=== PATIENT | female | born 1930 | race Caucasian/White ===

== ENCOUNTER 2016-11-04 15:25 | Inpatient (IN) | payer MEDICARE, BC ==
[~2016-11-04] VITALS: Ht 157.5 cm; Wt 52.6 kg
--- NOTE | 2016-11-04 16:00 | NUR ---
RECEIVED TO ROOM 2238 DIRECT ADMIT FROM DOCTOR'S OFFICE. IV STARTED TO L FA WITH 20 GUAGE X 1 ATTEMPT. FAMILY AT BEDSIDE.
[2016-11-04] MEDS ORDERED: COZAAR100 MG PO (16:03)
[2016-11-04] MEDS ORDERED: MECLIZINE HCL25 MG PO (16:05)
[2016-11-04] MEDS ORDERED: METOPROLOL TART50 MG PO (16:06)
[2016-11-04] MEDS ORDERED: XARELTO20 MG PO (16:07)
[2016-11-04] MEDS ORDERED: PROBIOTIC1 EAC1 (16:07)
[2016-11-04 16:21] VITALS: BP 145/78; BMI 21.2
[2016-11-04 17:23] LABS: ALBUMIN 3.5 g/dL (3.4-5.0); ANION GAP 12.3 mmol/L (8-16); BILIRUBIN - TOTAL 1.27 mg/dL (0.2-1.3); CALCIUM 9.5 mg/dL (8.5-10.1); CARBON DIOXIDE 28.3 mmol/L (21.0-32.0); CREATININE - SERUM 1.1 mg/dL (0.6-1.3); INR 2.06 (0.85-1.17); POTASSIUM - SERUM 4.6 mmol/L (3.5-5.1); PROTEIN - SERUM 6.4 g/dL (6.4-8.2); PROTIME 23.3 SECONDS (11.6-15.0)
[2016-11-04 17:47] VITALS: BP 126/74
--- NOTE | 2016-11-04 18:18 | NUR ---
BOX ALARM IN USE. NO CHANGES NOTED AT PRESENT.
[2016-11-04 20:00] VITALS: BP 158/64
--- NOTE | 2016-11-04 20:21 | NUR ---
PT SEEN AND ASSESSED. ASSISTED TO BR X 1 PERSON. GAIT SLOW AND STEADY-STATES SHE GETS DIZZY AT TIMES. ASSISTED BACK TO BED AND FALL PRECAUTIONS PUT INTO PLACE. BOX ALARM REATTACHED. DAUGHTERS AT BEDSIDE. CALL LIGHT IN REACH
--- NOTE | 2016-11-04 21:30 | NUR ---
ASSIST UP TO BATHROOM AND BACK TO BED.PT GAIT STAEDY WITH ASSIST. CALL LIGHT IN REACH.BOX ALARM PLACED ON PT.FAMILY AT BEDSIDE
[2016-11-05] VITALS: BP 153/58
[2016-11-05 05:50] LABS: BASOPHILS 0.3 % (0-2); EOSINOPHILS 3.2 % (0-7); HEMATOCRIT 34.3 % (36.0-48.0); HEMOGLOBIN 11.4 g/dL (12-16); IMMATURE GRANULOCYTES 0.2 % (0-5); LYMPHOCYTES 14.7 % (15-50); MCH 30.5 pg (26.0-34.0); MCHC 33.2 g/dL (31.0-37.0); MCV 91.7 fL (80.0-100.0); MEAN PLATELET VOLUME 11.6 fL (7.4-10.4); MONOCYTES 7.9 % (2-11); NEUTROPHILS 73.7 % (40-80); PLATELET COUNT 198 10x3/uL (130-400); RBC 3.74 10x6/uL (4.00-5.40); WBC 6.6 10x3/uL (4.8-10.8)
[2016-11-05 05:59] LABS: INR 1.3 (0.85-1.17)
[2016-11-05 06:20] LABS: ALBUMIN 2.8 g/dL (3.4-5.0); ANION GAP 11.5 mmol/L (8-16); BILIRUBIN - TOTAL 1.13 mg/dL (0.2-1.3); CALCIUM 8.9 mg/dL (8.5-10.1); CARBON DIOXIDE 26.6 mmol/L (21.0-32.0); CHOL - HDL RATIO 2.3 ratio (2.3-4.1); LDL-HDL RATIO 1.1 ratio (1.5-3.5); POTASSIUM - SERUM 4.1 mmol/L (3.5-5.1); PROTEIN - SERUM 5.3 g/dL (6.4-8.2)
[2016-11-05 06:21] LABS: CREATININE - SERUM 0.8 mg/dL (0.6-1.3)
--- NOTE | 2016-11-05 06:38 | NUR ---
REMAINS WITHOUT DISTRESS,WITHOUT CHNAGE.CONT PLAN OF CARE
--- NOTE | 2016-11-05 07:10 | NUR ---
PT REC'D FROM RAJAN GALLAGHER. RESTING IN BED WITH DAUGHTER AT BEDSIDE. AAOX4. ASSISTED PT TO BATHROOM. PT IS A LITTLE UNSTEADY, BUT AMBULATED TO THE BATHROOM WITH LITTLE ASSISTANCE. NO COMPLAINTS OF N/V. PROVIDED PT WITH ICE CHIPS. TOLERATED WELL. BED LOW, CALL LIGHT IN REACH, DENIES NEEDS. CPOC.
--- NOTE | 2016-11-05 07:12 | HP ---
PATIENT: SADIA LOCKHART MEDICAL RECORD: [id number] ACCOUNT: [id number] LOCATION:[facility] [id number] : 30 ADMISSION DATE: 11/04/16 HISTORY AND PHYSICAL EXAMINATION Admission History and Physical HISTORY OF PRESENT ILLNESS: An 86-year-old female, who presents to the clinic after 4 days of diffuse abdominal pain, fever and chills, rigor, feeling very fatigued, brought in by daughter and granddaughter. PAST MEDICAL HISTORY: Hypertension, anxiety, hyperlipidemia, palpitations, remote cholecystectomy, spinal fusion, hysterectomy, tonsillectomy, history of anxiety, chronic back pain, hyperlipidemia, dyspnea on exertion, lower extremity DVT and unclear history of pulmonary emboli. She was started on Xarelto by her maintenance service dispatcher at [facility]. I do not have the actual results of these tests. SOCIAL HISTORY: No smoking history. Moderate caffeine. No alcohol. FAMILY HISTORY: Aunt with hypertension and mother with hypertension. ALLERGIES: CODEINE, SHE GETS NAUSEATED. CURRENT MEDICATIONS: Losartan 100 mg daily, meclizine 25 mg p.r.n. vertigo, metoprolol ER 50 mg daily and Xarelto 20 mg daily. REVIEW OF SYSTEMS: CONSTITUTIONAL: No acute change in weight, decreased appetite with acute illness. HEENT: Denies cephalgia, visual changes, tinnitus, epistaxis, or dysphagia. CARDIOVASCULAR: Denies chest pain, admits to dyspnea on exertion, no acute changes. PULMONARY: Denies hemoptysis, denies night sweats. GASTROINTESTINAL: Denies hematemesis, hematochezia, or melena. Does admit to nausea, diffuse abdominal pain. Denies diarrhea. MUSCULOSKELETAL: No acute changes. ENDOCRINE: Denies polyuria, polydipsia, or polyphagia. PHYSICAL EXAMINATION: VITAL SIGNS: Weight 116, height 5 feet 3 inches. Her blood pressure is 150/82, heart rate 80 and respirations 20. GENERAL: Alert, oriented, moderate distress secondary to above. HEENT: Normocephalic and atraumatic. Eyes: Pupils are equally round, reactive to light and accommodation. Extraocular muscles are intact. Conjunctivae not injected. Ears: Canals patent, TMs are intact. Nose: Nares patent without drainage. Throat: No erythema and no exudates. NECK: Supple. No lymphadenopathy and no JVD. HEART: Regular rate and rhythm. No S3, S4, no rub. LUNGS: Clear to auscultation bilaterally. Breathing is nonlabored. ABDOMEN: Soft. Hypoactive bowel sounds. Diffuse tenderness. No palpable masses. No rebound or guarding. EXTREMITIES: Present times 4, no edema. NEUROLOGIC: Intact. No focal deficits. SKIN: Warm and dry. No rash. HISTORY AND PHYSICAL [id number] SADIA LOCKHART LABORATORY DATA: Urinalysis: Glucose negative, bilirubin in urine 1+, specific gravity of urine 1.015, urine pH 7.5, nitrites negative, leukocytes negative, trace of blood. CBC: White count elevated at 11.8, hemoglobin 12.5, hematocrit 40.5, platelets 162 and neutrophils elevated at 10.1. ASSESSMENT AND PLAN: Abdominal pain, nausea, vomiting, leukocytosis, general decline, the patient is admitted. Intravenous normal saline at 88 mL per hour, Zofran 4 mg IV q. 4 p.r.n. nausea and vomiting. Blood cultures times 2. CT abdomen and pelvis with contrast. CMP on admission with amylase and lipase; CBC and CMP in the a.m. Consult Dr. Garcia of GI. Flagyl 500 mg IV t.i.d. Hold Xarelto, Lovenox 1 mg/kg subQ q.12 hours. PT, PTT and INR on admission and repeat in a.m. Losartan 100 mg p.o. daily and metoprolol ER 50 mg daily. Diet is n.p.o. May take meds with sips of water. TRANSINT:[id number] Voice Confirmation ID: [id number] DOCUMENT ID: [id number] ELVIN HUGO DO at 0712 CC: [id number] DICTATION DATE: 11/04/16 1603 FLEET ADMINISTRATOR: 11/04/[id number] ADM IN [place] [id number] [place] [address]
[2016-11-05 09:41] VITALS: BP 144/61
--- NOTE | 2016-11-05 10:33 | NUR ---
Patient Name: SADIA LOCKHART Admission Status: Urgent Accout number: [id number] Admission Date: 11-04-2016 : 1930 Admission Diagnosis: Attending: JON Current LOS: 1 Anticipated DC Date: 11-07-2016 Planned Disposition: Home Primary Insurance: MEDICARE A & B Discharge Planning Comments: CM MET WITH PATIENT AND FAMILY GEETA (DAUGHTER), AND SERA (GD) REGARDING D/C NEEDS AND PLANS. PATIENT STATED SHE LIVES ALONE AND HER FAMILY LIVES A[address] IF NEEDED. PATIENT HAS A RAMP TO ENTER HOME AND NO STAIRS INSIDE. PATIENT STATED SHE IS INDEPENDENT WITH HER CARE AND HAS A WALKER, CANE, WHEELCHAIR, BS COMMODE, AND SHOWER CHAIR AT HOME IF NEEDED. PATIENTS PCP IS DR. HUGO AND PHARMACY IS [facility]. PATIENT AND FAMILY WANT TO THINK ABOUT HOME HEALTH AT THIS TIME AND WILL LET CM KNOW THEIR DECISION. CM WILL CONTINUE TO FOLLOW PATIENT WITH D/C NEEDS AND PLANS. PCP DR. OANH BATEMAN [facility] [phone] GEETA CLEARY (DAUGHTER) [phone] SERA SINDY (GRANDDAUGHTER) [phone] Scallop Dredger: Lena Gale Is the patient Alert and Oriented? Yes 0 * How many steps to enter\exit or inside your home? 0 0 * PCP DR. HUGO 0 * Pharmacy [facility] [address] [facility] [employer] 0 * Preadmission Environment Home Alone 0 * ADLs Independent 0 * Equipment Bedside Commode Cane Shower Chair Walker Wheelchair 0 * List name and contact numbers for known caregivers / representatives who currently or will assist patient after discharge: GEETA CLEARY (DAUGHTER) [phone] SERA CALLAHAN (GD) [phone] 0 * Community resources currently utilized None 0 * Additional services required to return to the preadmission environment? Yes 0 * Can the patient safely return to the preadmission environment? Yes 0 * Has this patient been hospitalized within the prior 30 days at any hospital? No 0 Grand Total: 0
--- NOTE | 2016-11-05 10:50 | NUR ---
MORNING MEDS PASSED AT THIS TIME WITH A SIP OF WATER. PT TOLERATED WELL. NO COMPLAINTS OF N/V. RECONNECTED TO IVF AFTER RECEIVING A SHOWER. BED LOW, CALL LIGHT IN REACH, DENIES NEEDS. CPOC.
--- NOTE | 2016-11-05 11:39 | NUR ---
PT AOX4 RESP EVEN AND NONLABORED PT HERE FOR ABD PAIN FOR THIS VISIT IV TO LEFT FOREARM PATENT AND INTACT PT DENIES NEEDS AT THIS TIME SRX2 BED AT LOWEST SETTING CALL LIGHT WITHIN REACH WILL CONTINUET TO MONITOR
[2016-11-05 12:55] VITALS: BP 181/59
--- NOTE | 2016-11-05 12:55 | NUR ---
PRN ANTIEMETIC ADMINISTERED PER PT COMPLAINTS OF NAUSEA. WILL REASSESS.
--- NOTE | 2016-11-05 15:38 | NUR ---
DR. HUGO CALLED TO CLARIFY ORDERS AND INFORMATION FOR PATIENT AND FAMILY. NEW ORDERS REC'D. PT AND FAMILY UPDATED.
[2016-11-05 20:00] VITALS: BP 151/67
--- NOTE | 2016-11-05 20:25 | NUR ---
PT STATES THAT SHE IS NAUSEATED AT THIS TIME. COOL RAG APPLIED TO BACK OF NECK. DRY HEAVING INTO EMESIS BAG. FAMILY MEMBERS BY HER SIDE AND WAITING IN THE HALLWAY. PRN ZOFRAN ADMINISTERED AT THIS TIME. PT LYING BACK IN BED AFTER EPISODE AND STATES THAT SHE FEELS MUCH BETTER. WILL CONT TO MONITOR.
--- NOTE | 2016-11-05 22:00 | NUR ---
SHIFT ASSESSMENT COMPLETE. S1S2 AUDIBLE. BS ACTIVE X4. CLEAR LUNG SOUNDS THROUGHOUT ALL LOBES. PT IN RESTROOM AT THIS TIME. SMALL SEMIFORMED BM AND 400 ML CLEAR YELLOW URINE. DAUGHTER AT BEDSIDE. PT IN GOOD SPIRITS AND STATES THAT SHE IS FEELING MUCH BETTER AND NOT NAUSEATED AT THIS TIME. WILL CONT TO MONITOR.
--- NOTE | 2016-11-06 00:55 | NUR ---
PT NAUSEATED AT THIS TIME. SHE DENIES ANY PRN ZOFRAN AND STATES THAT SHE HAS TO USE THE RESTROOM. SMALL SEMIFORMED STOOL. DAUGHTER AT BEDSIDE. WHEN WALKING BACK TO THE BED SHE STATED THAT SHE ACTUALLY FEELS STRONGER AND THAT SHE IS FEELING MUCH BETTER. PT BACK IN BED AND IN GOOD SPIRITS. WILL CONT TO MONITOR.
--- NOTE | 2016-11-06 03:00 | NUR ---
PT RESTING PEACEFULLY AT THIS TIME. DAUGHTER AT BEDSIDE. NO S/S OF DISTRESS NOTED. WILL CONT TO MONITOR.
[2016-11-06 04:00] VITALS: BP 144/66
[2016-11-06 05:59] LABS: BASOPHILS 0.2 % (0-2); EOSINOPHILS 1.3 % (0-7); HEMATOCRIT 35.2 % (36.0-48.0); HEMOGLOBIN 11.4 g/dL (12-16); IMMATURE GRANULOCYTES 0.3 % (0-5); MCH 29.9 pg (26.0-34.0); MCHC 32.4 g/dL (31.0-37.0); MCV 92.4 fL (80.0-100.0); MEAN PLATELET VOLUME 11.7 fL (7.4-10.4); MONOCYTES 10.8 % (2-11); NEUTROPHILS 70.4 % (40-80); PLATELET COUNT 217 10x3/uL (130-400); RBC 3.81 10x6/uL (4.00-5.40); WBC 6.1 10x3/uL (4.8-10.8)
[2016-11-06 06:00] LABS: APTT 34.8 SECONDS (22.8-39.4); INR 1.14 (0.85-1.17); PROTIME 14.5 SECONDS (11.6-15.0)
[2016-11-06 06:25] LABS: ALBUMIN 2.8 g/dL (3.4-5.0); ANION GAP 14.2 mmol/L (8-16); BILIRUBIN - DIRECT 0.31 mg/dL (0.00-0.30); BILIRUBIN - INDIRECT 0.41 mg/dL (0.00-1.00); BILIRUBIN - TOTAL 0.72 mg/dL (0.2-1.3); CALCIUM 8.4 mg/dL (8.5-10.1); CARBON DIOXIDE 24.6 mmol/L (21.0-32.0); CREATININE - SERUM 0.8 mg/dL (0.6-1.3); MAGNESIUM - SERUM 1.6 mg/dL (1.8-2.4); PHOSPHOROUS 2.9 mg/dL (2.5-4.9); POTASSIUM - SERUM 3.8 mmol/L (3.5-5.1); PROTEIN - SERUM 5.4 g/dL (6.4-8.2)
[2016-11-06 09:02] VITALS: BP 155/61
--- NOTE | 2016-11-06 12:54 | NUR ---
PT SEEN FOR SOAKER HELPER NOTE. NPO FOR ERCP. ENTERED ROOM AND PT STILL IN PJS. WIPED DOWN WITH HIBICLENS WIPES AND GOWN ON. FAMILY AT BEDSIDE. CALL LIGHT IN REACH
[2016-11-06 13:26] VITALS: BP 153/74
[2016-11-06 14:06] VITALS: Ht 157.5 cm; Wt 52.6 kg
--- NOTE | 2016-11-06 15:27 | NUR ---
30 ML DYE USED AND 1 MINUTE 33 SECONDS XRAY TIME USED. ERCP WITH BALOON SWEPT SLUDGE.
[2016-11-06 16:24] VITALS: BP 152/91
--- NOTE | 2016-11-06 16:37 | NUR ---
DIANE MAYFIELD CRNA GAVE HYDRALAZINE 10MG. FOR ELEVATED BLOOD PRESSURE. SEE ANETHESIA RECORD.
--- NOTE | 2016-11-06 16:50 | NUR ---
UPON ARRIVAL TO PACU ASSESSMENT OF RIGHT HAND REVEALS SMALL SKIN TEAR TO RIGHT HAND. CLEAR DRESSING NOTED. DRY, CLEAN AND INTACT. BLEEDING CONTROLLED. WILL CONTINUE TO MONITOR.
[2016-11-06 20:00] VITALS: BP 176/68
[2016-11-07] VITALS: BP 175/98
--- NOTE | 2016-11-07 00:05 | NUR ---
PT HAS FREQUENT COUGHING AND THEN WILL GAG. PT HAS SOME STRESS INCONTINENCE EPISODES WITH COUGHING. ASSISTED UP TO BATHROOM FOR SOFT BROWN STOOL. COMPLETE ASSESSMENT PER FLOW-SHEET. NO OTHER NEEDS. WILL CONTINUE TO MONITOR.
[2016-11-07 04:00] VITALS: BP 152/71
[2016-11-07 05:20] LABS: BASOPHILS 0.1 % (0-2); EOSINOPHILS 0.1 % (0-7); HEMATOCRIT 35.8 % (36.0-48.0); HEMOGLOBIN 11.7 g/dL (12-16); IMMATURE GRANULOCYTES 0.6 % (0-5); LYMPHOCYTES 13.8 % (15-50); MCH 30.2 pg (26.0-34.0); MCHC 32.7 g/dL (31.0-37.0); MCV 92.5 fL (80.0-100.0); MEAN PLATELET VOLUME 11.6 fL (7.4-10.4); MONOCYTES 7.2 % (2-11); NEUTROPHILS 78.2 % (40-80); PLATELET COUNT 208 10x3/uL (130-400); RBC 3.87 10x6/uL (4.00-5.40); RDW 14.1 % (11.5-14.5)
[2016-11-07 05:26] LABS: WBC 8.5 10x3/uL (4.8-10.8)
[2016-11-07 05:38] LABS: ANION GAP 17.4 mmol/L (8-16); CALCIUM 8.6 mg/dL (8.5-10.1); CARBON DIOXIDE 21.2 mmol/L (21.0-32.0); CREATININE - SERUM 0.8 mg/dL (0.6-1.3); POTASSIUM - SERUM 3.6 mmol/L (3.5-5.1)
--- NOTE | 2016-11-07 07:00 | NUR ---
PT AWAKE, ALERT AND ORIENTED. RESTING IN BED. DAUGHTER IN ROOM. L-FOREARM PERIPHERAL IV INFUSING NS AT 88ML/HR. NO REDNESS OR SWELLING NOTED ON SITE. DRESSING ADHERED TO SKIN. ON ROOM AIR. BRUISE NOTED ON LEFT FOREARM. SKIN TEAR NOTED ON R-HAND WITH DRESSING ON IT. NO OTHER SKIN ISSUES NOTED. SCD'S ON BOTH LEGS. S1S2 AUDIBLE. LUNG SOUNDS CLEAR ON ALL LOBES. BS ACTIVE X 4. PT REPORTS NO PAIN AT THIS TIME. FALL ALARM BOX ON. CALL LIGHT IN REACH. BED IN LOW POSITION. BEDSIDE RAILS UP X 2. WILL CONTINUE TO MONITOR.
[2016-11-07 08:27] VITALS: BP 153/70
--- NOTE | 2016-11-07 09:38 | NUR ---
ASSISTED PT TO BATHROOM. PT REPORTED HAVING A BM AND URINE. UNABLE TO ASSESS URINE OR BM. PT TOLERATED GETTING OUT OF BED WELL. NO SHORTNESS OF BREATH NOTED. AM MEDS GIVEN WITH NO COMPLICATIONS. PT CURRENTLY RESTING ON HER BACK. DAUGHTER IN ROOM. WILL CONTINUE TO MONITOR.
--- NOTE | 2016-11-07 09:50 | NUR ---
EXISTING TEGADERM TO RIGHT HAND REMOVED. SKIN TEAR CLEANSED WITH SAF WOUND CLEANSER AND PAT DRY. VASELINE GAUZE APPLIED TO SITE, COVERED WITH CLEAN GAUZE AND SECURED WITH TEGADERM. PT TOLERATED WITHOUT COMPLAINTS. WILL CONTINUE WITH PLAN OF CARE.
--- NOTE | 2016-11-07 11:55 | NUR ---
CM REASSESSMENT NOTE: CM MET WITH GRANDDAUGHTER (SERA) AND PATIENT REGARDING HOME HEALTH. PATIENT AND GRANDDAUGHTER AGREED PATIENT DID NOT NEED NOR WANT HOME HEALTH. GRANDDAUGHTER STATED SHE AND HER MOTHER BOTH LIVE ACROSS THE [address] AND HELP PATIENT WHEN NEEDED. CM STATED SHE COULD BENEFIT JUST FOR A LITTLE WHILE WITH HOME HEALTH AND THEY BOTH STATED NO THAT SHE DID NOT NEED IT AT THIS TIME. FAMILY WILL DRIVE PATIENT HOME AT DISCHARGE (SHOULD D/C TOMORROW). D/C IMM SERVED
--- NOTE | 2016-11-07 12:22 | NUR ---
PT RESTING IN BED. SCD'S IN PLACE. DAUGHTER IN ROOM WITH HER. PERIPHERAL IV SALINE LOCKED.
[2016-11-07 13:47] VITALS: BP 148/73
--- NOTE | 2016-11-07 15:36 | NUR ---
PT RESTING QUIETLY. WATCHING TV. NO NEEDS AT THIS TIME. VISITOR IN ROOM.
[2016-11-07 16:15] VITALS: BP 136/79
[2016-11-07 20:00] VITALS: BP 137/51
--- NOTE | 2016-11-07 21:12 | NUR ---
EYES CLOSED. RESP EVEN AND UNLABORED. NO DISTRESS NOTED.SL TO LEFT FOREARM WITHOUT REDNESS OR EDEMA. CL IN REACH. BOX ALARM ON.
[2016-11-08] VITALS: BP 181/83
--- NOTE | 2016-11-08 01:12 | NUR ---
AWAKE WITHOUT COMPLAINTS. CL IN REACH
[2016-11-08 04:00] VITALS: BP 154/76
--- NOTE | 2016-11-08 04:56 | NUR ---
EYES CLOSED RESP EVEN AND UNALBORED. CL IN REACH
[2016-11-08 06:32] LABS: BASOPHILS 0.1 % (0-2); EOSINOPHILS 2.2 % (0-7); HEMATOCRIT 36.9 % (36.0-48.0); HEMOGLOBIN 12.2 g/dL (12-16); IMMATURE GRANULOCYTES 0.3 % (0-5); MCH 29.9 pg (26.0-34.0); MCHC 33.1 g/dL (31.0-37.0); MONOCYTES 10.1 % (2-11); NEUTROPHILS 66.3 % (40-80); PLATELET COUNT 226 10x3/uL (130-400); RBC 4.08 10x6/uL (4.00-5.40); RDW 14.2 % (11.5-14.5)
[2016-11-08 06:37] LABS: MCV 90.4 fL (80.0-100.0)
[2016-11-08 06:52] LABS: AMYLASE - SERUM 65 U/L (25-115); CALC OSMOLALITY 279 mosm/kg (275-300); CALCIUM 8.6 mg/dL (8.5-10.1); CARBON DIOXIDE 25.6 mmol/L (21.0-32.0); CHLORIDE - SERUM 108 mmol/L (98-107); CREATININE - SERUM 0.7 mg/dL (0.6-1.3); GLUCOSE 111 mg/dL (74-106); LIPASE 73 U/L (73-393); POTASSIUM - SERUM 3.2 mmol/L (3.5-5.1); SODIUM 141 mmol/L (136-145); UREA NITROGEN 8 mg/dL (7-18); eGFR NON AFRICAN AMERICAN 84 mL/min (90-120)
[2016-11-08] MEDS ORDERED: ONDANSETRON4 MG/2 M3 PO (07:50)
--- NOTE | 2016-11-08 08:00 | NUR ---
AWAKE AND ALERT. ORIENTED X3. C/O SOME NAUSEA THIS AM. GIVEN SALTINES TO NIBBLE WHILE DRINKING SAME. WILL MONITOR. LUNGS ARE CLEAR BILATERALLY, NO COUGH NOTED. SKIN IS INTACT WITHOUT REDNESS. IV TO LEFT FOREARM IS PATENT WITHOUT REDNESS AT INSERTION SITE. DENIES NEEDS.
[2016-11-08 08:21] VITALS: BP 170/74
--- NOTE | 2016-11-08 08:52 | NUR ---
REQUESTED AND GIVEN 4MG ZOFRAN SLOW IVP FOR C/O NAUSEA. WILL MONITOR. FAMILY AT BEDSIDE.
--- NOTE | 2016-11-08 10:34 | NUR ---
DISCHARGED TO HOME WITH FAMILY AMBULATORY. DISCHARGE INSTRUCTIONS GIVEN BOTH VERBALLY AND WRITTEN. ALL QUESTIONS ANSWERED. PATIENT AND FAMILY VERBALIZED UNDERSTANDING OF SAME. NEEDED PRESCRIPTIONS GIVEN TO PATIENT. IV TO LEFT FOREARM D/C WITH CATHETER INTACT.
== END 2016-11-08 10:41 | disposition home or self-care (01) | DRG 445 ==
LOC: D.MS 15:25
PROVIDERS: Internal Medicine Gastroenterology; ADMIT Family Medicine
PROC: BF101ZZ Fluoroscopy of Bile Ducts using Low Osmolar Contrast (ICD-10-PCS; 2016-11-06)
PROC: 0FC98ZZ Extirpation of Matter from Common Bile Duct, Via Natural or Artificial Opening Endoscopic (ICD-10-PCS; principal; 2016-11-06 15:30)
DX: K80.30 Calculus of bile duct with cholangitis, unspecified, without obstruction (principal); Z90.49 Acquired absence of other specified parts of digestive tract; I10 Essential (primary) hypertension; F41.9 Anxiety disorder, unspecified; E78.5 Hyperlipidemia, unspecified; Z86.718 Personal history of other venous thrombosis and embolism; Z79.01 Long term (current) use of anticoagulants; Z86.711 Personal history of pulmonary embolism